=== PATIENT | male | born 1945 | race Caucasian/White ===

== ENCOUNTER → 2018-08-22 | Day surgery (SDC) | payer MEDICARE | LOC: MSO 07:45 | DX: H25.812 Combined forms of age-related cataract, left eye (principal); E78.00 Pure hypercholesterolemia, unspecified; I10 Essential (primary) hypertension; N40.0 Benign prostatic hyperplasia without lower urinary tract symptoms; Z79.82 Long term (current) use of aspirin | CPT/HCPCS: 00142; J0171; J2250; J3010; V2632 ==